=== PATIENT | female | born 1990 | race Caucasian/White ===

== ENCOUNTER → 2016-11-13 | Outpatient (REF) | payer BC ==
[2016-11-13 12:54] LABS: ALKALINE PHOSPHATASE 61 U/L (45-117); ALT/SGPT 24 U/L (12-78); ANION GAP 7 MEQ/L (8-16); AST/SGOT 15 U/L (15-37); BILIRUBIN,TOTAL 0.5 MG/DL (0.2-1.0); BLOOD UREA NITROGEN 12 MG/DL (7-18); CALCIUM LEVEL 8.7 MG/DL (8.5-10.1); CARBON DIOXIDE LEVEL 26 MEQ/L (21-32); CHLORIDE LEVEL 107 MEQ/L (98-107); CHOLESTEROL LEVEL 173 MG/DL (<200); CREATININE FOR GFR 0.68 MG/DL (0.55-1.02); GLOMERULAR FILTRATION RATE > 60.0 (>60); GLUCOSE, FASTING 87 MG/DL (70-105); POTASSIUM SERUM 4.4 MEQ/L (3.5-5.1); SODIUM LEVEL 140 MEQ/L (136-145); TRIGLYCERIDES LEVEL 70 MG/DL (<150)
[2016-11-13 12:55] LABS: ALBUMIN 3.6 GM/DL (3.2-5.2); ALBUMIN/GLOBULIN RATIO 1.06 (1.00-1.93)
== END ==
LOC: M SFHCPLAZ 08:03
PROVIDERS: ATTEND Family Medicine
DX: E66.09 Other obesity due to excess calories (principal); L68.0 Hirsutism

== ENCOUNTER 2017-05-10 13:59 | Emergency (ER) | payer OTHER, BC ==
[2017-05-10] MEDS: IBUPROFEN 600 MG TAB PO (17:00)
[2017-05-10] MEDS: CYCLOBENZAPRINE 10 MG TAB PO (17:00)
== END 2017-05-10 17:53 | disposition home or self-care (01) ==
LOC: M ED 13:59
DX: S13.4XXA Sprain of ligaments of cervical spine, initial encounter (principal); V43.52XA Car driver injured in collision with other type car in traffic accident, initial encounter; Y92.410 Unspecified street and highway as the place of occurrence of the external cause; Y93.89 Activity, other specified; Z79.3 Long term (current) use of hormonal contraceptives
CPT/HCPCS: 72040

== ENCOUNTER → 2017-05-12 | Outpatient (REF) | payer BC ==
[2017-05-12 11:51] LABS: IRON (FE) 56 UG/DL (50-170)
[2017-05-12 12:05] LABS: VITAMIN B12 LEVEL 505 PG/ML (247-911)
== END ==
LOC: M SFHCPLAZ 08:28
DX: E61.1 Iron deficiency (principal); E53.8 Deficiency of other specified B group vitamins
CPT/HCPCS: 83540

== ENCOUNTER → 2017-05-23 | Outpatient (REF) | payer BC | LOC: M SFHCPLAZ 11:46 | DX: Z12.4 Encounter for screening for malignant neoplasm of cervix (principal) | CPT/HCPCS: G0123 ==

== ENCOUNTER → 2018-05-29 | Outpatient (REF) | payer BC, OTHER ==
[~2018-05-29] MED LIST: CYCL10TA PO; IBUP-1022 PO; YAZ1TAB PO
[2018-06-02 16:39] LABS: HPV HYBRID CAPTURE II Negative (Negative)
== END ==
LOC: M SFHCPLAZ 17:12
PROVIDERS: ATTEND Family Medicine
DX: Z12.4 Encounter for screening for malignant neoplasm of cervix (principal); Z11.51 Encounter for screening for human papillomavirus (HPV)
CPT/HCPCS: 87624; G0123

== ENCOUNTER → 2018-09-01 | Outpatient (CLI) | payer OTHER ==
[2018-09-01 13:31] LABS: BASO % 0.4 % (0.0-1.0); EOS # 0.2 10^3/uL (0.0-0.50); EOS % 2.7 % (0.0-3.0); HEMATOCRIT 40.3 % (36.0-47.0); LYMPH # 2.6 10^3/uL (1.5-6.5); LYMPH % 34.7 % (24.0-44.0); MEAN CORPUSCULAR HEMOGLOBIN 30.2 pg (27.0-33.0); MEAN CORPUSCULAR HGB CONC 32.3 g/dl (32.0-36.5); MEAN CORPUSCULAR VOLUME 93.5 fl (80.0-96.0); MONO # 0.4 10^3/uL (0.0-0.8); NEUTROPHILS # 4.1 10^3/uL (1.8-7.7); NEUTROPHILS % 56.2 % (36.0-66.0); PLATELET COUNT, AUTOMATED 219 10^3/uL (150-450); RED BLOOD COUNT 4.31 10^6/uL (4.00-5.40); WHITE BLOOD COUNT 7.4 10^3/uL (4.0-10.0)
[2018-09-01 14:28] LABS: ALBUMIN 3.1 GM/DL (3.2-5.2); ALT/SGPT 20 U/L (12-78); BILIRUBIN,TOTAL 0.3 MG/DL (0.2-1.0); BLOOD UREA NITROGEN 5 MG/DL (7-18); CALCIUM LEVEL 8.4 MG/DL (8.5-10.1); CARBON DIOXIDE LEVEL 25 MEQ/L (21-32); CHLORIDE LEVEL 108 MEQ/L (98-107); CREATININE FOR GFR 0.61 MG/DL (0.55-1.30); FERRITIN 250 NG/ML (8-252); GLOMERULAR FILTRATION RATE > 60.0 (>60); GLUCOSE, FASTING 93 MG/DL (70-100); IRON (FE) 72 UG/DL (50-170); MAGNESIUM LEVEL 2.3 MG/DL (1.8-2.4); PERCENT SATURATION 30.6 % (13.2-45.0); PHOSPHORUS LEVEL 3.1 MG/DL (2.5-4.9); POTASSIUM SERUM 4.1 MEQ/L (3.5-5.1); SODIUM LEVEL 142 MEQ/L (136-145); TOTAL 25(OH) VITAMIN D 21.6 NG/ML (30.0-100.0); TOTAL IRON BINDING CAPACITY 235 UG/DL (250-450); TOTAL PROTEIN 6.3 GM/DL (6.4-8.2); VITAMIN B12 LEVEL 722 PG/ML (247-911)
[2018-09-01 14:54] LABS: HEMOGLOBIN A1c 4.9 %
[2018-09-02 10:31] LABS: HEMATOCRIT 40.3 % (36.0-47.0)
== END ==
LOC: M WUC 10:30
PROVIDERS: ATTEND Surgery
DX: K91.2 Postsurgical malabsorption, not elsewhere classified (principal); E55.9 Vitamin D deficiency, unspecified; Z98.84 Bariatric surgery status

== ENCOUNTER → 2018-11-22 | Outpatient (CLI) | payer OTHER ==
--- NOTE | 2018-11-23 12:19 | REP ---
RIGHT KNEE, COMPLETE: 11/22/2018. CLINICAL HISTORY: Knee pain. Worse below the patella. FINDINGS: Five views were obtained with no prior study. On the lateral view, there is no patellar fracture. No high riding patella. No suprapatellar effusion. I see no avulsion of the quadriceps or patellar tendons by plain film. Medial and lateral compartments show no narrowing. There is no loose body or osteochondral defect. No fracture or avulsion. IMPRESSION: 1. Negative right knee series for fracture, joint effusion, or other acute bony finding. Electronically Signed by Kartik Cannon MD 11/23/2018 12:25 P
== END ==
LOC: M WUC 15:02
PROVIDERS: ATTEND Physician Assistant
DX: M25.561 Pain in right knee (principal)

== ENCOUNTER → 2019-01-29 | Outpatient (CLI) | payer OTHER ==
[2019-01-29 12:58] LABS: BASO % 0.4 % (0.0-1.0); EOS # 0.2 10^3/uL (0.0-0.5); EOS % 1.7 % (0.0-3.0); HEMATOCRIT 39.7 % (36.0-47.0); HEMOGLOBIN 12.7 g/dl (12.0-15.5); LYMPH # 3.1 10^3/uL (1.5-5.0); LYMPH % 33.1 % (24.0-44.0); MEAN CORPUSCULAR HEMOGLOBIN 30.2 pg (27.0-33.0); MEAN CORPUSCULAR HGB CONC 31.8 g/dl (32.0-36.5); MONO # 0.7 10^3/uL (0.0-0.8); MONO % 6.9 % (0.0-5.0); NEUTROPHILS # 5.4 10^3/uL (1.5-8.5); NEUTROPHILS % 57.6 % (36.0-66.0); PLATELET COUNT, AUTOMATED 305 10^3/uL (150-450); RED BLOOD COUNT 4.21 10^6/uL (4.00-5.40); WHITE BLOOD COUNT 9.4 10^3/uL (4.0-10.0)
[2019-01-29 13:29] LABS: ALBUMIN 3.4 GM/DL (3.2-5.2); ALT/SGPT 14 U/L (12-78); BILIRUBIN,TOTAL 0.3 MG/DL (0.2-1.0); BLOOD UREA NITROGEN 8 MG/DL (7-18); CALCIUM LEVEL 9.3 MG/DL (8.5-10.1); CARBON DIOXIDE LEVEL 28 MEQ/L (21-32); CHLORIDE LEVEL 106 MEQ/L (98-107); CREATININE FOR GFR 0.62 MG/DL (0.55-1.30); FERRITIN 291 NG/ML (8-252); GLOMERULAR FILTRATION RATE > 60.0 (>60); GLUCOSE, FASTING 69 MG/DL (70-100); IRON (FE) 97 UG/DL (50-170); MAGNESIUM LEVEL 2.1 MG/DL (1.8-2.4); PERCENT SATURATION 30.9 % (13.2-45.0); PHOSPHORUS LEVEL 3.5 MG/DL (2.5-4.9); POTASSIUM SERUM 4.5 MEQ/L (3.5-5.1); SODIUM LEVEL 140 MEQ/L (136-145); TOTAL IRON BINDING CAPACITY 314 UG/DL (250-450); TOTAL PROTEIN 6.8 GM/DL (6.4-8.2)
[2019-01-29 13:36] LABS: TOTAL 25(OH) VITAMIN D 29.3 NG/ML (30.0-100.0); VITAMIN B12 LEVEL 213 PG/ML (247-911)
== END ==
LOC: M WUC 10:21
PROVIDERS: ATTEND Physician Assistant
DX: K91.2 Postsurgical malabsorption, not elsewhere classified (principal); Z98.84 Bariatric surgery status; E55.9 Vitamin D deficiency, unspecified

== ENCOUNTER → 2019-03-17 | Outpatient (CLI) | payer OTHER ==
--- NOTE | 2019-03-17 15:06 | REP ---
ULTRASOUND LEFT BREAST: Real-time sonographic evaluation of the left breast performed for a palpable lump in the region of 2 o'clock. Ultrasound of the left breast between 12 and 3 o'clock demonstrates no cystic or solid nodule. IMPRESSION: ACR 2 benign. No cystic or solid nodule in the left breast between 12 and 3 o'clock in the region of the palpable lump. Clinical correlation and followup recommended. Unreviewed
== END ==
LOC: M RAD 13:06
PROVIDERS: ATTEND Family Medicine
DX: N64.4 Mastodynia (principal); N63.20 Unspecified lump in the left breast, unspecified quadrant

== ENCOUNTER → 2019-06-01 | Outpatient (REF) | payer OTHER | LOC: M LAB REF 10:10 | PROVIDERS: ATTEND Physician Assistant | DX: R30.0 Dysuria (principal) ==

== ENCOUNTER → 2019-08-03 | Outpatient (CLI) | payer OTHER ==
[~2019-08-03] MED LIST changes: +CYCL-707 PO; -CYCL10TA PO
[2019-08-03 17:44] LABS: BASO % 0.3 % (0.0-1.0); EOS # 0.1 10^3/uL (0.0-0.5); EOS % 1.3 % (0.0-3.0); HEMATOCRIT 38.4 % (36.0-47.0); HEMOGLOBIN 12.5 g/dl (12.0-15.5); LYMPH # 3.1 10^3/uL (1.5-5.0); MEAN CORPUSCULAR HEMOGLOBIN 30.7 pg (27.0-33.0); MEAN CORPUSCULAR HGB CONC 32.6 g/dl (32.0-36.5); MEAN CORPUSCULAR VOLUME 94.3 fl (80.0-96.0); MONO # 0.5 10^3/uL (0.0-0.8); MONO % 5.6 % (0.0-5.0); NEUTROPHILS # 5.4 10^3/uL (1.5-8.5); NEUTROPHILS % 58.5 % (36.0-66.0); PLATELET COUNT, AUTOMATED 310 10^3/uL (150-450); RED BLOOD COUNT 4.07 10^6/uL (4.00-5.40); WHITE BLOOD COUNT 9.2 10^3/uL (4.0-10.0)
[2019-08-03 17:53] LABS: HEMATOCRIT 38.4 % (36.0-47.0)
[2019-08-03 18:06] LABS: ALBUMIN 3.3 GM/DL (3.2-5.2); ALT/SGPT 26 U/L (12-78); BILIRUBIN,TOTAL 0.3 MG/DL (0.2-1.0); BLOOD UREA NITROGEN 8 MG/DL (7-18); CARBON DIOXIDE LEVEL 26 MEQ/L (21-32); CHLORIDE LEVEL 105 MEQ/L (98-107); CREATININE FOR GFR 0.54 MG/DL (0.55-1.30); FERRITIN 254 NG/ML (8-252); FOLATE 12.8 NG/ML (>5.4); GLOMERULAR FILTRATION RATE > 60.0 (>60); GLUCOSE, FASTING 63 MG/DL (70-100); IRON (FE) 88 UG/DL (50-170); PERCENT SATURATION 24.1 % (13.2-45.0); POTASSIUM SERUM 4.5 MEQ/L (3.5-5.1); SODIUM LEVEL 138 MEQ/L (136-145); TOTAL IRON BINDING CAPACITY 365 UG/DL (250-450); TOTAL PROTEIN 6.7 GM/DL (6.4-8.2); VITAMIN B12 LEVEL 185 PG/ML (247-911)
[2019-08-03 18:19] LABS: TOTAL 25(OH) VITAMIN D 29.1 NG/ML (30.0-100.0)
[2019-08-03 18:21] LABS: HEMOGLOBIN A1c 5.1 %
== END ==
LOC: M WUC 12:08
PROVIDERS: ATTEND Physician Assistant
DX: K92.1 Melena (principal); Z98.84 Bariatric surgery status; E55.9 Vitamin D deficiency, unspecified; Z86.39 Personal history of other endocrine, nutritional and metabolic disease

== ENCOUNTER → 2019-09-16 | Outpatient (REF) | payer OTHER | LOC: M LAB REF 17:49 | PROVIDERS: ATTEND Dermatology | DX: D22.5 Melanocytic nevi of trunk (principal); D22.62 Melanocytic nevi of left upper limb, including shoulder ==

== ENCOUNTER → 2019-11-25 | Outpatient (CLI) | payer OTHER ==
[2019-11-25 14:36] LABS: BASO % 0.2 % (0.0-1.0); EOS # 0.1 10^3/uL (0.0-0.5); HEMATOCRIT 38.3 % (36.0-47.0); HEMOGLOBIN 12.6 g/dl (12.0-15.5); LYMPH # 3.1 10^3/uL (1.5-5.0); LYMPH % 27.8 % (24.0-44.0); MEAN CORPUSCULAR HEMOGLOBIN 31.1 pg (27.0-33.0); MEAN CORPUSCULAR HGB CONC 32.9 g/dl (32.0-36.5); MEAN CORPUSCULAR VOLUME 94.6 fl (80.0-96.0); MONO # 0.8 10^3/uL (0.0-0.8); MONO % 6.8 % (0.0-5.0); NEUTROPHILS # 7.1 10^3/uL (1.5-8.5); NEUTROPHILS % 63.7 % (36.0-66.0); PLATELET COUNT, AUTOMATED 300 10^3/uL (150-450); RED BLOOD COUNT 4.05 10^6/uL (4.00-5.40); WHITE BLOOD COUNT 11.1 10^3/uL (4.0-10.0)
[2019-11-25 16:00] LABS: HEPATITIS C VIRUS ABY INDEX 0.2 INDEX (<0.8); HIV 1&2 SCREEN CENTAUR NEGATIVE (NEGATIVE)
[2019-11-25 16:04] LABS: CHLAMYDIA DNA AMPLIFICATION NEGATIVE (NEGATIVE); GC DNA AMPLIFICATION NEGATIVE (NEGATIVE)
[2019-11-25 17:04] LABS: HEMOGLOBIN A1c 5.2 %
== END ==
LOC: M PLALAB 10:50
PROVIDERS: ATTEND Advanced Practice Midwife
DX: Z34.80 Encounter for supervision of other normal pregnancy, unspecified trimester (principal); Z3A.00 Weeks of gestation of pregnancy not specified

== ENCOUNTER → 2019-12-09 | Outpatient (CLI) | payer OTHER ==
[2019-12-09 13:40] LABS: CALCIUM LEVEL 9.2 MG/DL (8.5-10.1)
[2019-12-09 13:52] LABS: TOTAL 25(OH) VITAMIN D 29.6 NG/ML (30.0-100.0)
[2019-12-09 13:54] LABS: FOLATE 23.3 NG/ML (>5.4)
== END ==
LOC: M PLALAB 09:55
PROVIDERS: ATTEND Advanced Practice Midwife
DX: O99.841 Bariatric surgery status complicating pregnancy, first trimester (principal); Z3A.00 Weeks of gestation of pregnancy not specified

== ENCOUNTER → 2020-01-31 | Outpatient (CLI) | payer OTHER ==
--- NOTE | 2020-02-02 07:42 | REP ---
INDICATION: ANATOMY COMPARISON: None. TECHNIQUE: Transabdominal obstetrical ultrasound with color Doppler evaluation. FINDINGS: Examination demonstrates a single live intrauterine in transverse (head to maternal right) presentation. motion is identified by technologist. Placenta is noted anterofundal and grade 0 without evidence for placenta previa or abruption. Amniotic fluid volume is normal. Cervix measures 3.4 cm in length and appears closed.. Gestational age by LMP 18 weeks 3 days with DANIEL 06/30/2020. Gestational age by current measurements 18 weeks 2 days with DANIEL 07/01/2020. FHR equals 143 beats per minute. BPD: 4.1 cm 18 weeks 2 days HC: 15.4 cm 18 weeks 2 days AC: 12.7 cm 18 weeks 2 days FL: 2.7 cm 18 weeks 3 days HL: 2.6 cm 18 weeks 3 days HC/AC: 1.21 Estimated weight 235 grams (41stpercentile). Anatomical assessment demonstrates normal structures including cranium, choroid plexus, cavum, cerebellum/posterior fossa, diaphragm, stomach, cord insertion/three-vessel cord, kidneys/bladder, spine, and extremities. IMPRESSION: 1. Single live intrauterine in transverse lie demonstrating appropriate estimated weight and growth. 2. Limited evaluation of the facial features and heart/ventricular outflow tracts. Remainder of the anatomical assessment appears complete and normal. <Electronically signed by Ten Stephenson > 02/02/20 0719
== END ==
LOC: M WHC 08:00
PROVIDERS: ATTEND Advanced Practice Midwife
DX: Z34.02 Encounter for supervision of normal first pregnancy, second trimester (principal); Z3A.18 18 weeks gestation of pregnancy

== ENCOUNTER → 2020-02-28 | Outpatient (CLI) | payer OTHER ==
--- NOTE | 2020-02-28 12:04 | REP ---
INDICATION: F/U ANATOMY COMPARISON: 01/31/2020 TECHNIQUE: Transabdominal obstetrical ultrasound with color Doppler evaluation. FINDINGS: Examination demonstrates a single live intrauterine in transverse presentation. motion is identified by technologist. Placenta is noted anterior and grade 0 without evidence for placenta previa or abruption. Amniotic fluid volume is normal. Cervix measures 4.0 cm in length and appears closed.. Gestational age by LMP twenty-two weeks 3 days with DANIEL 06/30/2020. Gestational age by current measurements 22 weeks 2 days with DANIEL 07/01/2020. FHR equals 134 beats per minute. Estimated weight 492 grams (38thpercentile). Anatomical assessment demonstrates normal structures including nose/lips, four-chamber heart, and ventricular outflow tracts. IMPRESSION: Single live intrauterine in transverse lie demonstrating appropriate estimated weight and growth. In conjunction with prior examination anatomical assessment is complete and normal. <Electronically signed by Ten Stephenson > 02/28/20 1200
== END ==
LOC: M WHC 07:55
PROVIDERS: ATTEND Obstetrics & Gynecology
DX: Z34.92 Encounter for supervision of normal pregnancy, unspecified, second trimester (principal); Z3A.22 22 weeks gestation of pregnancy

== ENCOUNTER → 2020-03-23 | Outpatient (CLI) | payer OTHER ==
[2020-03-23 11:31] LABS: HEMATOCRIT 36.2 % (36.0-47.0); HEMOGLOBIN 11.6 g/dl (12.0-15.5); MEAN CORPUSCULAR HEMOGLOBIN 31.8 pg (27.0-33.0); MEAN CORPUSCULAR VOLUME 99.2 fl (80.0-96.0); PLATELET COUNT, AUTOMATED 275 10^3/uL (150-450); RED BLOOD COUNT 3.65 10^6/uL (4.00-5.40); WHITE BLOOD COUNT 12.6 10^3/uL (4.0-10.0)
[2020-03-23 11:58] LABS: CALCIUM LEVEL 8.4 MG/DL (8.5-10.1)
[2020-03-23 12:14] LABS: FOLATE 22.5 NG/ML (>5.4)
== END ==
LOC: M WUC 08:26
PROVIDERS: ATTEND Advanced Practice Midwife
DX: O99.842 Bariatric surgery status complicating pregnancy, second trimester (principal); Z3A.00 Weeks of gestation of pregnancy not specified

== ENCOUNTER → 2020-04-15 | Outpatient (CLI) | payer SELFPAY | LOC: M LABSMTC 08:15 | PROVIDERS: ATTEND Pediatrics | DX: Z20.822 Contact with and (suspected) exposure to COVID-19 (principal) ==

== ENCOUNTER → 2020-05-11 | Outpatient (REF) | payer BC | LOC: M SFHCWAGY 09:53 | PROVIDERS: ATTEND Advanced Practice Midwife | DX: R10.2 Pelvic and perineal pain (principal) ==

== ENCOUNTER → 2020-05-18 | Outpatient (CLI) | payer BC ==
--- NOTE | 2020-05-19 03:44 | REP ---
INDICATION: GROWTH COMPARISON: 02/28/2020 TECHNIQUE: Transabdominal obstetrical ultrasound with color Doppler evaluation. FINDINGS: Examination demonstrates a single live intrauterine in cephalic presentation. motion is identified by technologist. Placenta is noted anterior and grade 2 without evidence for placenta previa or abruption. Amniotic fluid volume is normal. Cervix measures 3.4 cm in length and appears closed.. Gestational age by LMP 33 weeks 6 days with DANIEL 06/30/2020. Gestational age by current measurements 34 weeks 1 day with DANIEL 06/28/2020. FHR equals 142 beats per minute. BPD: 8.7 cm 34 weeks 6 days HC: 30.4 cm 33 weeks 5 days AC: 30.9 cm 34 weeks 6 days FL: 6.6 cm 33 weeks 6 days HL: 5.8 cm 33 weeks 4 days HC/AC: 0.98 Estimated weight 2429 grams (59thpercentile). ADILENE: 17.6 cm (8.1-24.8) IMPRESSION: Single live advanced gestation in cephalic presentation demonstrating appropriate estimated weight and growth. <Electronically signed by Ten Stephenson > 05/19/20 7240
== END ==
LOC: M WHC 12:48
PROVIDERS: ATTEND Advanced Practice Midwife
DX: O99.843 Bariatric surgery status complicating pregnancy, third trimester (principal); Z3A.33 33 weeks gestation of pregnancy

== ENCOUNTER → 2020-06-02 | Outpatient (REF) | payer BC, OTHER | LOC: M SFHCWAGY 13:27 | PROVIDERS: ATTEND Advanced Practice Midwife | DX: O99.843 Bariatric surgery status complicating pregnancy, third trimester (principal) ==

== ENCOUNTER → 2020-06-15 | Outpatient (CLI) | payer BC ==
--- NOTE | 2020-06-15 11:38 | REP ---
INDICATION: BARIATRIC SURGERY,GROWTH COMPARISON: 05/18/2020 TECHNIQUE: Transabdominal obstetrical ultrasound with color Doppler evaluation. FINDINGS: Examination demonstrates a single live intrauterine in cephalic presentation. motion is identified by technologist. Placenta is noted anterior and grade 3 without evidence for placenta previa or abruption. Amniotic fluid volume is normal. Cervix measures 3.2 cm in length and appears closed.. Gestational age by LMP and 1st ultrasound 37 weeks 6 days with DANIEL 06/30/2020. Gestational age by current measurements 37 weeks 0 days with DANIEL 07/06/2020. FHR equals 149 beats per minute. BPD: 9.1 cm at 36 weeks 5 days HC: 32.9 cm at 37 weeks 2 days AC: 34.8 cm at 38 weeks 5 days FL: 7.1 cm at 36 weeks 1 day HL: 6.3 cm at 36 weeks 3 days HC/AC: 0.94 Estimated weight 3290 grams (57thpercentile). ADILENE: 14.6 cm IMPRESSION: Single live intrauterine in cephalic presentation demonstrating appropriate estimated weight and growth. <Electronically signed by Ten Stephenson > 06/15/20 [id number]
== END ==
LOC: M WHC 09:06
PROVIDERS: ATTEND Advanced Practice Midwife
DX: O99.843 Bariatric surgery status complicating pregnancy, third trimester (principal); Z3A.37 37 weeks gestation of pregnancy

== ENCOUNTER 2020-06-24 09:16 | Inpatient (IN) | payer BC ==
[2020-06-24] VITALS (9 sets, daily range): BP systolic 100–120; BP diastolic 54–66
[~2020-06-24] VITALS: Ht 152.4 cm; Wt 82.4 kg
[2020-06-24] MEDS ORDERED: PRENTAB9 PO (09:45)
[2020-06-24] MEDS ORDERED: NOXI1TAB PO (09:45)
[2020-06-24] MEDS ORDERED: MULT1TAB8 PO (09:45)
[2020-06-24] MEDS ORDERED: TUMS500C PO (09:45)
[2020-06-24] MEDS ORDERED: IRON65TA2 PO (09:45)
[2020-06-24] MEDS ORDERED: B-12100010 PO (09:45)
[2020-06-24] MEDS ORDERED: LR 800 ML IV ONE (09:55)
[2020-06-24 10:42] LABS: HEMATOCRIT 36.1 % (36.0-47.0); HEMOGLOBIN 11.7 g/dl (12.0-15.5); MEAN CORPUSCULAR HEMOGLOBIN 30.8 pg (27.0-33.0); MEAN CORPUSCULAR HGB CONC 32.4 g/dl (32.0-36.5); PLATELET COUNT, AUTOMATED 271 10^3/uL (150-450); WHITE BLOOD COUNT 11.1 10^3/uL (4.0-10.0)
[2020-06-24] MEDS: miSOPROStol 50MCG 1/2 TABLET PO SCH ×3 (12:40→21:07)
[2020-06-24] MEDS: LR 1,000 ML IV SCH ×2 (13:08→20:26)
[2020-06-25] VITALS (34 sets, daily range): BP systolic 87–129; BP diastolic 49–77
[2020-06-25] MEDS: miSOPROStol 50MCG 1/2 TABLET PO SCH (01:48)
[2020-06-25] MEDS ORDERED: OXYTOCIN 30 UNITS IN 0.9% NaCl 500ML IV BAG (J2590) As Ordered ONE (06:20)
[2020-06-25] MEDS: LR 1,000 ML IV SCH ×2 (07:12→10:30)
[2020-06-25] MEDS ORDERED: OXYTOCIN DRIP 30 UNITS in IV 1 EA IV SCH ×3 (07:15→15:05)
--- NOTE | 2020-06-25 09:19 | HPE ---
HISTORY AND PHYSICAL DATE OF ADMISSION: 06/24/2020 HISTORY OF PRESENT ILLNESS: Haley is a 29-year-old female 1 para 0 with an EGA 39 and 4/7th weeks gestation who presented for elective social induction. She has been receiving care at [facility]. Upon admission, no bleeding, no leakage of fluid. She is complaining of occasional contractions. Her record was reviewed and was unremarkable. labs: Rubella immune, hepatitis negative, HIV negative. GC and chlamydia negative. One hour sugar testing was within normal limits. Her GBS is negative. PAST MEDICAL HISTORY: Denies. PAST SURGICAL HISTORY: History of gastric bypass. FAMILY HISTORY: Significant for melanoma. SOCIAL HISTORY: She denies any alcohol, drugs or cigarette smoking. PHYSICAL EXAMINATION: On admission, HEENT: Grossly within normal limits. Abdomen is soft, nontender and nondistended. Extremities: No clubbing, cyanosis or edema. Vaginal exam: 1 cm, 40% effaced, fetus at -3 station in a vertex position. heart rate tracing Category 1. Contractions: Irregular contractions. ASSESSMENT: Intrauterine at 39 and 4/7th weeks gestation, being admitted for elective induction. PLAN: Admit patient to Labor and Delivery, routine labs sent, the induction process is discussed, the decision has been made to proceed with Cytotec induction. cc: [facility]
[2020-06-25] MEDS ORDERED: FENTANYL 2MCG/ML ROPIVACAINE 0.2% IN 0.9% NACL 100ML IVBAG As Ordered ONE (09:36)
[2020-06-25] MEDS ORDERED: LACTATED RINGER'S 1000 ML IV PRN (10:00)
[2020-06-25] MEDS ORDERED: ePHEDrine SULFATE 25 MG/5 ML(5MG/ML) SYRINGE IV PRN (10:00)
[2020-06-25] MEDS ORDERED: ONDANSETRON 4MG/2ML VIAL IV PRN ×2 (10:00→15:05)
[2020-06-25] MEDS ORDERED: EPIDURAL COMMENT XX SCH (10:00)
[2020-06-25] MEDS ORDERED: FENTANYL/ROPIVACAINE/NACL BAG 100 ML EPIDURAL SCH (10:00)
[2020-06-25] MEDS ORDERED: EPIDURAL/PCA KEYS XX PRN (10:00)
[2020-06-25] MEDS ORDERED: NALOXONE INJ 0.4MG/1ML VIAL (J2310 PER 1MG) IV PRN (10:00)
[2020-06-25] MEDS ORDERED: diphenhydrAMINE 50MG/ML VIAL (J1200) IV PRN (10:00)
[2020-06-25] MEDS ORDERED: REFRIGERATOR IV KEYS XX PRN (10:00)
--- NOTE | 2020-06-25 13:43 | IPNPDOC ---
Obstetrical Progress Note Date of Service Jun 25, 2020 Subjective Patient states epidural has offered significant relief of her pain. However, she is starting to feel rectovaginal pressure. +bloody show. Objective Vital Signs Date Time Temp Pulse Resp B/P (MAP) Pulse Ox O2 Delivery O2 Flow Rate FiO2 06/25/20 12:50 62 112/59 (76) 06/25/20 12:35 97.6 18 06/24/20 20:14 Room Air Assessment Heart Rate Tracing: Category I Tocometer Contractions: Yes Frequency: every 2-5 min. Sterile Vaginal Examination Dilation: complete Effacement (%): 100% Station: +1, +2 Cervical Position: Anterior Postion/Presentation: Cephalic presentation Assessment and Plan Status: Reassuring Group B Streptococcus: Negative Anticipate: Vaginal Delivery (second stage of labor; normal progression. Reassuring maternal and status. Start maternal pushing efforts) LUIS AGNEL REILLY DO Jun 25, 2020 13:43
[2020-06-25] MEDS ORDERED: RHOGAM 300 MCG (1500 IU) INJ (J2790) IM SCH (15:05)
[2020-06-25] MEDS ORDERED: IBUPROFEN 600MG TAB PO PRN (15:05)
[2020-06-25] MEDS ORDERED: DOCUSATE SODIUM 100MG CAPSULE PO PRN (15:05)
[2020-06-25] MEDS ORDERED: DIBUCAINE 1% OINTMENT 30GM TOP PRN (15:05)
[2020-06-25] MEDS ORDERED: MEASLES,MUMPS,RUBELLA VACCINE INJ (MMR-II) (90707) SC SCH (15:05)
[2020-06-25] MEDS ORDERED: ACETAMINOPHEN 500 MG TAB PO PRN (15:05)
[2020-06-25] MEDS ORDERED: IBUPROFEN 800 MG TAB PO PRN (15:05)
[2020-06-25] MEDS ORDERED: LR 1,000 ML IV SCH (15:05)
--- NOTE | 2020-06-25 15:13 | DNPDOC ---
[facility] Delivery Note Delivery Note DATE OF DELIVERY: 06/25/2020 TIME OF DELIVERY: 1446 Spontaneous vaginal delivery. SIFTING OPERATOR: Dr. Lester Anand DO FACOG ANESTHESIA:. Epidural LACERATION: None ESTIMATED BLOOD LOSS: 200 mL. FINDINGS: See [facility] for birthweight, Score 8 and 9. DELIVERY SUMMARY: The active phase and second stage of labor progressed in normal fashion.. She received Pitocin augmentation throughout her labor course. The head delivered in the AKILAH position, and restituted LOT. No nuchal cord was noted. The anterior shoulder delivered with gentle downward guidance and the remainder of the body delivered with ease. The baby was placed on the patient's chest. Delayed cord clamping occurred for approximately 1 minute. The cord was then doubly clamped and cut. IV Pitocin was bolused to actively manage the third stage of labor. The placenta delivered intact without any difficulty within 10 minutes of delivery. The uterine fundus was noted to be firm and 2 cm below the umbilicus. The cervix, vagina, vulva and perineum were inspected. No laceration was noted, but a 2-3 cm vaginal hematoma was noted along the right sulcus. Excellent hemostasis was noted and was stable/not expanding. Sponge, needle and instrument counts were correct per protocol. DO LAVELLE Hilton JONATHAN R. DO Jun 25, 2020 15:13
[2020-06-25] MEDS: ACETAMINOPHEN TAB 650MG DOSE (2X325MG) PO PRN (19:43)
[2020-06-26] MEDS: ACETAMINOPHEN TAB 650MG DOSE (2X325MG) PO PRN ×5 (01:38→22:20)
[2020-06-26 06:00] VITALS: BP 122/69
[2020-06-26] MEDS: PRENATAL VITAMINS CHEWABLE TABLET PO SCH (07:16)
--- NOTE | 2020-06-26 09:18 | IPNPDOC ---
Progress Note Date of Service: Jun 26, 2020 Day#: 1 Progress Note SUBJECT: Status post . She has been ambulating, voiding spontaneously without issue and tolerating regular diet. Lochia decreasing/minimal. Pain is well-controlled. Denies headache, visual changes, right upper quadrant pain, shortness breath or chest pain. OBJECTIVE: VITAL SIGNS: Within normal limits, afebrile. Alert and oriented times three. Abdomen: Fundus firm at U-2. Soft, NTTP. ASSESSMENT: Status post uncomplicated spontaneous vaginal delivery. Vitals within normal limits, afebrile, hemodynamically stable with no evidence of infection. PLAN: Discharge to home tomorrow Tylenol and Motrin for pain. Routine instructions/precautions reviewed. Routine PP visit in 6 weeks in clinic. VS, I&O, 24H, Fishbone Vital Signs/I&O Vital Signs Date Time Temp Pulse Resp B/P (MAP) Pulse Ox O2 Delivery O2 Flow Rate FiO2 06/26/20 06:00 98.3 59 16 122/69 (86) 96 Room Air I&O- Last 24 Hours up to 6 AM 06/26/20 06:00 Intake Total 3465.3 ml Output Total 1050 ml Balance 2415.3 ml LUIS ANGEL REILLY DO Jun 26, 2020 09:18
[2020-06-26 18:00] VITALS: BP 125/63
[2020-06-27] MEDS: ACETAMINOPHEN TAB 650MG DOSE (2X325MG) PO PRN ×2 (02:19→07:51)
[2020-06-27 06:00] VITALS: BP 111/62
[2020-06-27] MEDS ORDERED: ACET-683 PO (07:08)
[2020-06-27] MEDS ORDERED: IBUP80TA PO (07:08)
[2020-06-27] MEDS: PRENATAL VITAMINS CHEWABLE TABLET PO SCH (07:51)
== END 2020-06-27 11:15 | disposition home or self-care (01) | DRG 560 ==
LOC: M LDI 09:16 → M OBS 06-25 16:57
PROVIDERS: ADMIT Obstetrics & Gynecology; ATTEND Obstetrics & Gynecology
PROC: 10E0XZZ Delivery of Products of Conception, External Approach (ICD-10-PCS; principal; 2020-06-25)
DX: O71.7 Obstetric hematoma of pelvis (principal); Z37.0 Single live birth; Z3A.39 39 weeks gestation of pregnancy

== ENCOUNTER → 2020-11-20 | Outpatient (CLI) | payer BC ==
[~2020-11-20] MED LIST changes: +ACET-683 PO; +B-12100010 PO; +IBUP80TA PO; +IRON65TA2 PO; +MULT1TAB8 PO; +NOXI1TAB PO; +PRENTAB9 PO; +TUMS500C PO
[2020-11-20 10:12] LABS: HEMATOCRIT 37.8 % (36.0-47.0); MEAN CORPUSCULAR HEMOGLOBIN 30.5 pg (27.0-33.0); MEAN CORPUSCULAR HGB CONC 31.7 g/dl (32.0-36.5); MEAN CORPUSCULAR VOLUME 95.9 fl (80.0-96.0); PLATELET COUNT, AUTOMATED 296 10^3/uL (150-450); RED BLOOD COUNT 3.94 10^6/uL (4.00-5.40); WHITE BLOOD COUNT 7.6 10^3/uL (4.0-10.0)
[2020-11-20 10:42] LABS: ALBUMIN 3.2 GM/DL (3.2-5.2); ALT/SGPT 14 U/L (12-78); BILIRUBIN,TOTAL 0.3 MG/DL (0.2-1.0); BLOOD UREA NITROGEN 9 MG/DL (7-18); CALCIUM LEVEL 8.6 MG/DL (8.5-10.1); CARBON DIOXIDE LEVEL 27 MEQ/L (21-32); CHLORIDE LEVEL 110 MEQ/L (98-107); CHOLESTEROL LEVEL 209 MG/DL (<200); CHOLESTEROL RISK RATIO 3.119 (<5); CREATININE FOR GFR 0.52 MG/DL (0.55-1.30); FERRITIN 77 NG/ML (8-252); GLOMERULAR FILTRATION RATE > 60.0 (>60); GLUCOSE, FASTING 78 MG/DL (70-100); HDL CHOLESTEROL 67 MG/DL (>40); HEMATOCRIT 37.8 % (36.0-47.0); IRON (FE) 72 UG/DL (50-170); LDL CHOLESTEROL 119 MG/DL (<100); MAGNESIUM LEVEL 2.2 MG/DL (1.8-2.4); NON-HDL-C 142 MG/DL; PERCENT SATURATION 20.6 % (13.2-45.0); PHOSPHORUS LEVEL 3.7 MG/DL (2.5-4.9); POTASSIUM SERUM 4.5 MEQ/L (3.5-5.1); SODIUM LEVEL 141 MEQ/L (136-145); TOTAL IRON BINDING CAPACITY 349 UG/DL (250-450); TOTAL PROTEIN 6.2 GM/DL (6.4-8.2); TRIGLYCERIDES LEVEL 116 MG/DL (<150)
[2020-11-20 10:49] LABS: TOTAL 25(OH) VITAMIN D 20.9 NG/ML (30.0-100.0)
[2020-11-20 10:50] LABS: VITAMIN B12 LEVEL 450 PG/ML (247-911)
[2020-11-20 11:03] LABS: HEMOGLOBIN A1c 5.2 %
== END ==
LOC: M WUC 08:12
PROVIDERS: ATTEND Family Medicine
DX: K90.89 Other intestinal malabsorption (principal); Z13.1 Encounter for screening for diabetes mellitus; Z13.220 Encounter for screening for lipoid disorders

== ENCOUNTER → 2021-07-11 | Outpatient (CLI) | payer BC ==
[2021-07-11 20:12] LABS: HEMATOCRIT 39.6 % (36.0-47.0); HEMOGLOBIN 12.5 g/dl (12.0-15.5); MEAN CORPUSCULAR HEMOGLOBIN 30.4 pg (27.0-33.0); MEAN CORPUSCULAR HGB CONC 31.6 g/dl (32.0-36.5); MEAN CORPUSCULAR VOLUME 96.4 fl (80.0-96.0); PLATELET COUNT, AUTOMATED 308 10^3/uL (150-450); RED BLOOD COUNT 4.11 10^6/uL (4.00-5.40); WHITE BLOOD COUNT 10.1 10^3/uL (4.0-10.0)
[2021-07-11 20:42] LABS: HCG, SERUM QUALITATIVE NEGATIVE (NEGATIVE)
[2021-07-11 20:48] LABS: FERRITIN 52 NG/ML (8-252); IRON (FE) 46 UG/DL (50-170); TOTAL IRON BINDING CAPACITY 328 UG/DL (250-450)
[2021-07-11 20:50] LABS: TOTAL 25(OH) VITAMIN D 14.2 NG/ML (30.0-100.0); VITAMIN B12 LEVEL 412 PG/ML (247-911)
== END ==
LOC: M WUC 15:11
PROVIDERS: ATTEND Family Medicine
DX: K90.89 Other intestinal malabsorption (principal); E55.9 Vitamin D deficiency, unspecified; R11.0 Nausea

== ENCOUNTER → 2021-07-26 | Outpatient (REF) | payer BC | LOC: M SFHCPLAZ 13:12 | PROVIDERS: ATTEND Family Medicine | DX: Z12.4 Encounter for screening for malignant neoplasm of cervix (principal) ==

== ENCOUNTER → 2022-03-19 | Outpatient (CLI) | payer BC | LOC: M WHC 13:59 | PROVIDERS: ATTEND Physician Assistant | DX: M79.662 Pain in left lower leg (principal) ==

== ENCOUNTER → 2022-06-03 | Outpatient (CLI) | payer BC ==
[2022-06-03 14:22] LABS: HEMATOCRIT 36.4 % (36.0-47.0); HEMOGLOBIN 11.6 g/dl (12.0-15.5); MEAN CORPUSCULAR HEMOGLOBIN 29.5 pg (27.0-33.0); MEAN CORPUSCULAR HGB CONC 31.9 g/dl (32.0-36.5); MEAN CORPUSCULAR VOLUME 92.6 fl (80.0-96.0); PLATELET COUNT, AUTOMATED 313 10^3/uL (150-450); RED BLOOD COUNT 3.93 10^6/uL (4.00-5.40); WHITE BLOOD COUNT 11.9 10^3/uL (4.0-10.0)
[2022-06-03 14:38] LABS: CALCIUM LEVEL 8.9 MG/DL (8.5-10.1)
[2022-06-03 14:43] LABS: VITAMIN B12 LEVEL 435 PG/ML (211-911)
[2022-06-03 15:13] LABS: HIV 1&2 SCREEN CENTAUR NEGATIVE (NEGATIVE)
[2022-06-03 15:22] LABS: HEPATITIS C VIRUS ABY INDEX < 0.0 INDEX (<0.8)
[2022-06-03 17:23] LABS: GC DNA AMPLIFICATION NEGATIVE (NEGATIVE)
== END ==
LOC: M PLALAB 11:15
PROVIDERS: ATTEND Advanced Practice Midwife
DX: O99.841 Bariatric surgery status complicating pregnancy, first trimester (principal); Z3A.00 Weeks of gestation of pregnancy not specified

== ENCOUNTER → 2022-08-05 | Outpatient (CLI) | payer BC | LOC: M WHC 10:28 | PROVIDERS: ATTEND Obstetrics & Gynecology | DX: O26.892 Other specified pregnancy related conditions, second trimester (principal) ==

== ENCOUNTER → 2022-09-13 | Outpatient (CLI) | payer BC | LOC: M WHC 11:57 | PROVIDERS: ATTEND Obstetrics & Gynecology | DX: Z34.82 Encounter for supervision of other normal pregnancy, second trimester (principal); Z3A.25 25 weeks gestation of pregnancy ==

== ENCOUNTER → 2022-09-23 | Outpatient (CLI) | payer BC ==
[2022-09-23 14:06] LABS: HEMATOCRIT 32.6 % (36.0-47.0); HEMOGLOBIN 10.7 g/dl (12.0-15.5); MEAN CORPUSCULAR HGB CONC 32.8 g/dl (32.0-36.5); MEAN CORPUSCULAR VOLUME 94.5 fl (80.0-96.0); PLATELET COUNT, AUTOMATED 300 10^3/uL (150-450); RED BLOOD COUNT 3.45 10^6/uL (4.00-5.40); WHITE BLOOD COUNT 11.8 10^3/uL (4.0-10.0)
[2022-09-23 16:14] LABS: GC DNA AMPLIFICATION NEGATIVE (NEGATIVE)
[2022-09-23 16:46] LABS: HEMOGLOBIN A1c 4.9 % (4.0-6.0)
== END ==
LOC: M PLALAB 11:32
PROVIDERS: ATTEND Obstetrics & Gynecology
DX: Z34.92 Encounter for supervision of normal pregnancy, unspecified, second trimester (principal)

== ENCOUNTER → 2022-10-14 | Outpatient (CLI) | payer BC | LOC: M WHC 11:18 | PROVIDERS: ATTEND Obstetrics & Gynecology | DX: O26.849 Uterine size-date discrepancy, unspecified trimester (principal) ==

== ENCOUNTER → 2022-11-11 | Outpatient (CLI) | payer BC | LOC: M WHC 11:10 | PROVIDERS: ATTEND Obstetrics & Gynecology | DX: O26.843 Uterine size-date discrepancy, third trimester (principal); Z3A.33 33 weeks gestation of pregnancy ==

== ENCOUNTER → 2022-11-26 | Outpatient (REF) | payer BC | LOC: M SFHCWAGY 13:44 | PROVIDERS: ATTEND Advanced Practice Midwife | DX: Z34.93 Encounter for supervision of normal pregnancy, unspecified, third trimester (principal) ==

== ENCOUNTER → 2022-12-10 | Outpatient (CLI) | payer BC | LOC: M WHC 10:48 | PROVIDERS: ATTEND Obstetrics & Gynecology | DX: O26.849 Uterine size-date discrepancy, unspecified trimester (principal) ==

== ENCOUNTER 2022-12-13 15:32 | Outpatient (CLI) | payer BC ==
[~2022-12-13] VITALS: Ht 152.4 cm; Wt 94.7 kg
[2022-12-13 15:58] VITALS: BP 123/75
[2022-12-13] MEDS ORDERED: HOME MED LIST COMPLETE! XX SCH (16:45)
== END 2022-12-13 18:20 ==
LOC: M LDO 15:32
PROVIDERS: ATTEND Advanced Practice Midwife
DX: O36.8130 Decreased fetal movements, third trimester, not applicable or unspecified (principal); O47.1 False labor at or after 37 completed weeks of gestation; Z3A.38 38 weeks gestation of pregnancy; Z86.16 Personal history of COVID-19; O99.843 Bariatric surgery status complicating pregnancy, third trimester
CPT/HCPCS: 59025; 76815; 76819; 76820; G0463

== ENCOUNTER 2022-12-20 19:22 | Inpatient (IN) | payer BC ==
[2022-12-20] VITALS (19 sets, daily range): BP systolic 103–147; BP diastolic 54–72
[2022-12-20] MEDS ORDERED: TRANEXAMIC ACID INJection 1,000 MG in NS 100 ML IV PRN (19:40)
[2022-12-20] MEDS ORDERED: LIDOCAINE 1% MDV 20ML VIAL INFIL PRN (19:40)
[2022-12-20] MEDS ORDERED: METHYLERGONOVINE MALEATE 0.2MG/ML 1ML VIAL IM PRN (19:40)
[2022-12-20] MEDS ORDERED: OXYTOCIN DRIP 30 UNITS in IV 1 EA IV PRN (19:40)
[2022-12-20] MEDS ORDERED: LACTATED RINGER'S 1000 ML IV STA (19:40)
[2022-12-20] MEDS ORDERED: CARBOPROST TROMETHAMINE 250 MCG/ML AMP IM PRN (19:40)
[2022-12-20] MEDS ORDERED: LR 1,000 ML IV SCH (20:00)
[2022-12-20] MEDS ORDERED: diphenhydrAMINE 50MG/ML VIAL IV PRN (20:05)
[2022-12-20] MEDS ORDERED: EPIDURAL/PCA KEYS XX PRN (20:05)
[2022-12-20] MEDS ORDERED: ONDANSETRON 4MG 2ML VIAL IV PRN (20:05)
[2022-12-20] MEDS ORDERED: ePHEDrine SULFATE 25 MG/5 ML(5MG/ML) SYRINGE IVP PRN (20:05)
[2022-12-20] MEDS ORDERED: FENTANYL/ROPIVACAINE/NACL BAG 100 ML EPIDURAL SCH (20:05)
[2022-12-20] MEDS ORDERED: LR 500 ML IV PRN (20:05)
[2022-12-20] MEDS ORDERED: NALOXONE INJ 0.4MG/1ML VIAL IV PRN (20:05)
[2022-12-20 20:15] LABS: HEMOGLOBIN 11.3 g/dl (12.0-15.5); MEAN CORPUSCULAR HEMOGLOBIN 28.5 pg (27.0-33.0); MEAN CORPUSCULAR HGB CONC 32.3 g/dl (32.0-36.5); MEAN CORPUSCULAR VOLUME 88.4 fl (80.0-96.0); PLATELET COUNT, AUTOMATED 348 10^3/uL (150-450); RED BLOOD COUNT 3.96 10^6/uL (4.00-5.40); WHITE BLOOD COUNT 14.7 10^3/uL (4.0-10.0)
[2022-12-21] MEDS ORDERED: METHYLERGONOVINE MALEATE 0.2 MG TAB PO PRN (00:15)
[2022-12-21] MEDS ORDERED: RHOGAM 300MCG (1500IU) INJ IM SCH (00:15)
[2022-12-21] MEDS ORDERED: DIBUCAINE 1% OINTMENT 30GM TOP PRN (00:15)
[2022-12-21] MEDS ORDERED: ANUSOL HC CREAM 30GM TOP PRN (00:15)
[2022-12-21 02:45] VITALS: BP 133/65; O2SAT 98
[2022-12-21] MEDS: ACETAMINOPHEN 500 MG TAB PO PRN ×4 (03:09→21:46)
[2022-12-21 05:50] VITALS: BP 116/59; O2SAT 99
[2022-12-21] MEDS: DOCUSATE SODIUM 100MG CAPSULE PO SCH ×2 (09:27→21:45)
[2022-12-21] MEDS: PRENATAL VITAMINS CHEWABLE TABLET PO SCH (09:27)
[2022-12-21 18:00] VITALS: BP 125/69; O2SAT 99
[2022-12-22] MEDS: ACETAMINOPHEN 500 MG TAB PO PRN ×2 (05:07→12:38)
[2022-12-22 05:45] VITALS: BP 122/60; O2SAT 100
[2022-12-22] MEDS: PRENATAL VITAMINS CHEWABLE TABLET PO SCH (08:23)
[2022-12-22] MEDS: DOCUSATE SODIUM 100MG CAPSULE PO SCH (08:23)
[2022-12-22] MEDS ORDERED: ACET-683 PO (13:30)
[2022-12-23] MEDS ORDERED: MEASLES,MUMPS,RUBELLA VACCINE INJ (MMR-II) SC.IMMUN ONE (09:00)
== END 2022-12-22 14:17 | disposition home or self-care (01) | DRG 560 ==
LOC: M LDO 19:22 → M LDI 19:40 → M OBS 12-21 02:45
PROVIDERS: ADMIT Advanced Practice Midwife; ATTEND Advanced Practice Midwife
PROC: 10E0XZZ Delivery of Products of Conception, External Approach (ICD-10-PCS; principal; 2022-12-20)
DX: O69.82X0 Labor and delivery complicated by other cord entanglement, without compression, not applicable or unspecified (principal); Z86.16 Personal history of COVID-19; Z37.0 Single live birth; Z3A.39 39 weeks gestation of pregnancy

== ENCOUNTER → 2023-04-25 | Outpatient (CLI) | payer BC ==
[2023-04-25 11:05] LABS: BASO % 0.5 % (0.0-1.0); EOS # 0.1 10^3/uL (0.0-0.5); EOS % 1.5 % (0.0-3.0); HEMATOCRIT 38.9 % (36.0-47.0); HEMOGLOBIN 12.1 g/dl (12.0-15.5); LYMPH # 3.2 10^3/uL (1.5-5.0); LYMPH % 39.2 % (24.0-44.0); MEAN CORPUSCULAR HEMOGLOBIN 27.6 pg (27.0-33.0); MEAN CORPUSCULAR HGB CONC 31.1 g/dl (32.0-36.5); MEAN CORPUSCULAR VOLUME 88.8 fl (80.0-96.0); MONO # 0.6 10^3/uL (0.0-0.8); NEUTROPHILS # 4.2 10^3/uL (1.5-8.5); NEUTROPHILS % 51.3 % (36.0-66.0); PLATELET COUNT, AUTOMATED 343 10^3/uL (150-450); RED BLOOD COUNT 4.38 10^6/uL (4.00-5.40); WHITE BLOOD COUNT 8.2 10^3/uL (4.0-10.0)
[2023-04-25 11:23] LABS: IRON (FE) 58 UG/DL (50-170); PERCENT SATURATION 15.3 % (13.2-45.0); TOTAL IRON BINDING CAPACITY 378 UG/DL (250-425)
[2023-04-25 11:24] LABS: ALBUMIN 3.5 G/DL (3.2-5.2); ALKALINE PHOSPHATASE 91 U/L (46-116); ALT/SGPT 19 U/L (7.0-40); AST/SGOT 16 U/L (<34); BILIRUBIN,TOTAL 0.4 MG/DL (0.3-1.2); BLOOD UREA NITROGEN 10 MG/DL (9-23); CALCIUM LEVEL 8.5 MG/DL (8.5-10.1); CARBON DIOXIDE LEVEL 29 MMOL/L (20-31); CHLORIDE LEVEL 108 MMOL/L (98-107); CHOLESTEROL LEVEL 196 MG/DL (<200); CHOLESTEROL RISK RATIO 3.13 (<5); CREATININE FOR GFR 0.61 MG/DL (0.55-1.30); GLOMERULAR FILTRATION RATE > 60.0 (>60); GLUCOSE, FASTING 75 MG/DL (60-100); HDL CHOLESTEROL 62.5 MG/DL (>40); LDL CHOLESTEROL 110.3 MG/DL (<100); NON-HDL-C 133.5 MG/DL; POTASSIUM SERUM 4.8 MMOL/L (3.5-5.1); SODIUM LEVEL 141 MMOL/L (136-145); TOTAL PROTEIN 6.5 G/DL (5.7-8.2); TRIGLYCERIDES LEVEL 116 MG/DL (<150)
[2023-04-25 11:27] LABS: TOTAL 25(OH) VITAMIN D 34.5 NG/ML (20.0-100.0); VITAMIN B12 LEVEL 215 PG/ML (211-911)
[2023-04-25 11:28] LABS: FERRITIN 13.2 NG/ML (7.3-270.7); FOLLICLE STIMULATING HORMONE 2.3 mIU/ML; LUTEINIZING HORMONE 2.6 mIU/ML
[2023-04-25 11:49] LABS: HEMOGLOBIN A1c 5.2 % (4.0-6.0)
== END ==
LOC: M WUC 08:11
PROVIDERS: ATTEND Physician Assistant
DX: L74.510 Primary focal hyperhidrosis, axilla (principal); Z86.2 Personal history of diseases of the blood and blood-forming organs and certain disorders involving the immune mechanism; Z13.1 Encounter for screening for diabetes mellitus; Z13.220 Encounter for screening for lipoid disorders; E55.9 Vitamin D deficiency, unspecified; E53.8 Deficiency of other specified B group vitamins

== ENCOUNTER → 2023-09-11 | Outpatient (REF) | payer BC ==
[2023-09-13 12:04] LABS: HPV APTIMA Not Detected (Not Detected)
== END ==
LOC: M SFHCWAGY 17:22
PROVIDERS: ATTEND Advanced Practice Midwife
DX: Z12.4 Encounter for screening for malignant neoplasm of cervix (principal)
CPT/HCPCS: 87624; G0123

== ENCOUNTER 2023-11-24 08:27 | Day surgery (SDC) | payer BC ==
[~2023-11-24] VITALS: Ht 154.9 cm; Wt 92.4 kg
[~2023-11-24 08:27] MED LIST changes: +LIDOCAINE 2% 100MG/5ML SDV (FOR ANES.) As Ordered ONE; +MIDAZOLAM INJ 2MG/2ML VIAL As Ordered ONE; +ONDANSETRON 4MG 2ML VIAL As Ordered ONE; +ZYRTTAB8 PO; +fentaNYL 100 MCG/2 ML INJECTION As Ordered ONE; +propofoL 200 MG/20 ML VIAL As Ordered ONE
[2023-11-24] MEDS ORDERED: LR 1,000 ML IV SCH ×2 (08:30→09:50)
[2023-11-24] MEDS ORDERED: KETOROLAC 60MG 2ML VIAL As Ordered ONE (09:39)
[2023-11-24] MEDS ORDERED: ONDANSETRON 4MG 2ML VIAL IV PRN (09:50)
[2023-11-24] MEDS: fentaNYL 100 MCG/2 ML INJECTION IV PRN (10:08)
[2023-11-24 11:23] VITALS: BP 117/64; TEMP 97.4; O2SAT 98
== END 2023-11-24 11:55 | disposition home or self-care (01) ==
LOC: M SDC 08:27
PROVIDERS: ATTEND Orthopaedic Surgery Hand Surgery
DX: G56.02 Carpal tunnel syndrome, left upper limb (principal); D64.9 Anemia, unspecified; Z79.899 Other long term (current) drug therapy; Z79.1 Long term (current) use of non-steroidal anti-inflammatories (NSAID); Z98.84 Bariatric surgery status
CPT/HCPCS: 29848; 81025; J0665; J1100; J1885; J2250; J2405; J3010

== ENCOUNTER → 2024-08-06 | Outpatient (CLI) | payer BC ==
[~2024-08-06] MED LIST changes: -LIDOCAINE 2% 100MG/5ML SDV (FOR ANES.) As Ordered ONE; -MIDAZOLAM INJ 2MG/2ML VIAL As Ordered ONE; -ONDANSETRON 4MG 2ML VIAL As Ordered ONE; -fentaNYL 100 MCG/2 ML INJECTION As Ordered ONE; -propofoL 200 MG/20 ML VIAL As Ordered ONE
[2024-08-06 12:58] LABS: HEMATOCRIT 35.3 % (36.0-47.0); HEMOGLOBIN 11.2 g/dl (12.0-15.5); MEAN CORPUSCULAR HGB CONC 31.7 g/dl (32.0-36.5); MEAN CORPUSCULAR VOLUME 91.5 fl (80.0-96.0); PLATELET COUNT, AUTOMATED 257 10^3/uL (150-450); RED BLOOD COUNT 3.86 10^6/uL (4.00-5.40); WHITE BLOOD COUNT 6.4 10^3/uL (4.0-10.0)
[2024-08-06 13:38] LABS: FERRITIN 7.3 NG/ML (7.3-270.7)
[2024-08-06 13:40] LABS: CHOLESTEROL RISK RATIO 2.91 (<5); HDL CHOLESTEROL 57.7 MG/DL (>40); LDL CHOLESTEROL 97.5 MG/DL (<100); NON-HDL-C 110.3 MG/DL; PERCENT SATURATION 22.2 % (13.2-45.0)
[2024-08-06 13:42] LABS: FOLATE 9.2 NG/ML (>5.4)
== END ==
LOC: M WUC 09:03
PROVIDERS: ATTEND Nurse Practitioner Family
DX: K91.1 Postgastric surgery syndromes (principal); E78.00 Pure hypercholesterolemia, unspecified

== ENCOUNTER → 2024-08-11 | Outpatient (CLI) | payer BC | LOC: M SOG 08:05 | PROVIDERS: ATTEND Physician Assistant | DX: M25.521 Pain in right elbow (principal); Z53.9 Procedure and treatment not carried out, unspecified reason ==

== ENCOUNTER → 2024-09-21 | Outpatient (REF) | payer BC ==
[2024-09-21 18:37] LABS: Trichomonas vaginalis (AMP) NOT DETECTED (NEGATIVE)
[2024-09-21 19:00] LABS: GC DNA AMPLIFICATION NEGATIVE (NEGATIVE)
== END ==
LOC: M SFHCPLAZ 16:53
PROVIDERS: ATTEND Nurse Practitioner Family
DX: N94.10 Unspecified dyspareunia (principal); N39.41 Urge incontinence

== ENCOUNTER → 2025-01-11 | Outpatient (REF) | payer BC ==
[~2025-01-11] MED LIST changes: -IBUP-1022 PO; +IBUP600T42 PO
[2025-01-11 14:15] LABS: APPEARANCE, URINE CLEAR (CLEAR); BACTERIA, URINE AUTO NEGATIVE (NEGATIVE); BILIRUBIN, URINE AUTO NEGATIVE (NEGATIVE); BLOOD, URINE BLOOD NEGATIVE (NEGATIVE); GLUCOSE, URINE (UA) AUTO NEGATIVE (NEGATIVE); KETONE, URINE AUTO TRACE mg/dL (NEGATIVE); LEUKOCYTE ESTERASE, URINE AUTO 1+ (NEGATIVE); MUCUS, URINE SMALL (NEGATIVE); NITRITE, URINE AUTO NEGATIVE (NEGATIVE); PROTEIN, URINE AUTO NEGATIVE (NEGATIVE); RBC, URINE AUTO 1 /HPF (0-3); SPECIFIC GRAVITY URINE AUTO 1.008 (1.002-1.035); SQUAMOUS EPITHELIAL CELL UR AU 0 /HPF (0-6); UROBILINOGEN, URINE AUTO 0.2 mg/dL (0.0-2.0); WBC, URINE AUTO 2 /HPF (0-3)
== END ==
LOC: M SFHCPLAZ 13:03
PROVIDERS: ATTEND Nurse Practitioner Family
DX: R82.2 Biliuria (principal)

== ENCOUNTER → 2025-01-13 | Outpatient (CLI) | payer BC ==
[~2025-01-13] MED LIST changes: +ISOVUE-370 76% 100 ML VIAL As Ordered ONE
== END ==
LOC: M RAD 14:54
PROVIDERS: ATTEND Nurse Practitioner Family
DX: K62.5 Hemorrhage of anus and rectum (principal); R22.9 Localized swelling, mass and lump, unspecified; N83.202 Unspecified ovarian cyst, left side
CPT/HCPCS: 74177; Q9967

== ENCOUNTER → 2025-02-08 | Outpatient (CLI) | payer BC ==
[~2025-02-08] MED LIST changes: -ISOVUE-370 76% 100 ML VIAL As Ordered ONE
== END ==
LOC: M WHC 07:49
PROVIDERS: ATTEND Nurse Practitioner Family
DX: R93.5 Abnormal findings on diagnostic imaging of other abdominal regions, including retroperitoneum (principal)

== ENCOUNTER 2025-03-09 10:23 | Day surgery (SDC) | payer BC ==
[~2025-03-09] VITALS: Ht 152.4 cm; Wt 56.5 kg
[~2025-03-09 10:23] MED LIST changes: +COLA100C5 PO; +TIRZ10PE3
[2025-03-09] MEDS ORDERED: LIDOCAINE 2% 100 MG/5 ML SDV (FOR ANES.) As Ordered ONE (11:04)
[2025-03-09 11:19] VITALS: TEMP 98.4
[2025-03-09 11:50] VITALS: BP 98/51; O2SAT 99
== END 2025-03-09 11:58 | disposition home or self-care (01) ==
LOC: M OPP 10:23
PROVIDERS: ATTEND Surgery
DX: K64.0 First degree hemorrhoids (principal); R93.3 Abnormal findings on diagnostic imaging of other parts of digestive tract; Z88.6 Allergy status to analgesic agent; Z79.85 Long-term (current) use of injectable non-insulin antidiabetic drugs; Z79.899 Other long term (current) drug therapy

== ENCOUNTER 2025-03-26 04:56 | Emergency (ER) | payer BC ==
[~2025-03-26] VITALS: Ht 152.4 cm; Wt 56.8 kg
[2025-03-26 06:19] LABS: BASO # 0.0 10^3/uL (0.0-0.2); BASO % 0.6 % (0.0-1.0); EOS # 0.1 10^3/uL (0.0-0.5); EOS % 2.2 % (0.0-3.0); LYMPH # 1.6 10^3/uL (1.5-5.0); LYMPH % 28.5 % (24.0-44.0); MONO # 0.5 10^3/uL (0.0-0.8); MONO % 8.8 % (2.0-8.0); NEUTROPHILS # 3.3 10^3/uL (1.5-8.5); NEUTROPHILS % 59.7 % (36.0-66.0); PLATELET COUNT, AUTOMATED 264 10^3/uL (150-450)
[2025-03-26 06:35] LABS: HCG, SERUM QUALITATIVE NEGATIVE (NEGATIVE)
[2025-03-26 06:36] LABS: ALT/SGPT 31 U/L (7.0-40); AST/SGOT 26 U/L (<34); CALCIUM LEVEL 8.9 MG/DL (8.5-10.1); CARBON DIOXIDE LEVEL 26 MMOL/L (20-31); CHLORIDE LEVEL 105 MMOL/L (98-107); CREATININE FOR GFR 0.67 MG/DL (0.55-1.30); GLOMERULAR FILTRATION RATE > 90.0 (>60); POTASSIUM SERUM 4.8 MMOL/L (3.5-5.1); SODIUM LEVEL 140 MMOL/L (136-145)
[2025-03-26 07:46] LABS: CK-MB VALUE MASS < 1.0 NG/ML (<3.6)
[2025-03-26] MEDS ORDERED: ISOVUE-370 76% 100 ML VIAL As Ordered ONE (07:46)
[2025-03-26 07:51] LABS: CPK CREATINE PHOSPHOKINASE 53 U/L (34-145)
[2025-03-26] MEDS: NS (Normal Saline) 0.9% 1,000 ML IV ONE (08:01)
[2025-03-26] MEDS: ACETAMINOPHEN *IV* 1,000 MG in IV 1 EA IV ONE (08:02)
[2025-03-26] MEDS: ONDANSETRON 4MG/2ML VIAL IV ONE (08:02)
[2025-03-26] MEDS: MORPHINE 2 MG/ML 1 ML VIAL IV PRN (08:02)
[2025-03-26 08:35] LABS: CK-MB VALUE MASS < 1.0 NG/ML (<3.6)
[2025-03-26 08:37] LABS: CPK CREATINE PHOSPHOKINASE 50 U/L (34-145)
[2025-03-26] MEDS ORDERED: CARA1TAB6 PO (08:59)
[2025-03-26] MEDS ORDERED: OMEP40CA4 PO (08:59)
[2025-03-26 09:15] VITALS: BP 101/57; TEMP 98.8; O2SAT 100
== END 2025-03-26 09:21 | disposition home or self-care (01) ==
LOC: M ED 04:56
DX: R07.9 Chest pain, unspecified (principal); R10.9 Unspecified abdominal pain; B34.8 Other viral infections of unspecified site; N83.291 Other ovarian cyst, right side; D64.9 Anemia, unspecified; Z98.84 Bariatric surgery status; Z88.8 Allergy status to other drugs, medicaments and biological substances; Z79.2 Long term (current) use of antibiotics; Z79.899 Other long term (current) drug therapy
CPT/HCPCS: 74177; 76705; 80048; 80076; 82550; 82553; 83605; 83690; 84484; 84703; 85025; 93005; 93041; 96365; 96375; 99285; J0134; J2405; Q9967